=== PATIENT | female | born 1985 | race Hispanic/Latino ===

== ENCOUNTER 2020-10-15 17:30 | Emergency (ER) | payer BC ==
[2020-10-15 19:33] LABS: Basophils % 0.4 % (0-1.3)
[2020-10-15 19:43] LABS: Absolute Lymphocytes (CBC) 2.5 K/uL (0.7-4.9); Lymphocytes % 17.9 % (15.3-44.8); MPV 8.9 fL (7.6-11.3); RBC Red Blood Cell Count 5.06 M/uL (3.86-4.86)
[2020-10-15 19:50] LABS: Potassium 3.7 mmol/L (3.5-5.1)
[2020-10-15] MEDS ORDERED: METHYLPREDNISOLONE 125 MG INJ ONE (20:11)
[2020-10-15 20:22] LABS: Urine Specific Gravity/Preg 1.025 (1.005-1.030)
[2020-10-15 20:25] LABS: Blood Morphology Comment NOT SEEN (NOT SEEN); Platelet Estimate ADEQ; White Blood Cell Scan OK (OK)
--- NOTE | 2020-10-15 21:01 | RAD REPORT ---
EXAM DESCRIPTION: CT - Head Brain Wo Cont - 10/15/2020 8:22 pm CLINICAL HISTORY: PAIN, periorbital pain COMPARISON: No comparisons TECHNIQUE: Axial 5 mm thick images of the head were obtained without IV contrast. All CT scans are performed using dose optimization technique as appropriate and may include automated exposure control or mA/KV adjustment according to patient size. FINDINGS: No intracranial hemorrhage, mass, edema or shift of mid-line structures. No acute infarcti on changes seen. No abnormal extra-axial fluid collections. Ventricles are normal. Mastoid air cells are clear. Mucosal thickening seen in each maxillary sinus, worse on the right with an air-fluid level on the right. Ethmoid air cell mucosal thickening present. He was sphenoid mucosa l thickening is present. Frontal sinuses are clear. No globe abnormality. Optic nerves and extraocular muscles are normal in appearance. No air or foreig n body. Lacrimal glands are symmetric and more prominent than typically seen. Soft tissues anterior t o the globes do not appear grossly abnormal. No acute bony findings. IMPRESSION: No intracranial abnormality seen. Symmetric, enlarged lacrimal glands with no globe or orbital content otherwise noted. Findings are fu rther detailed follow postcontrast exam. Maxillary and ethmoid sinusitis
--- NOTE | 2020-10-15 21:07 | RAD REPORT ---
EXAM DESCRIPTION: CT - Head Brain W Cont - 10/15/2020 8:22 pm CLINICAL HISTORY: VISUAL DISTURBANCES, orbital cellulitis COMPARISON: Head Brain Wo Cont dated 10/15/2020 TECHNIQUE: Axial 5 mm thick images of the head were obtained following nonionic IV contrast. All CT scans are performed using dose optimization technique as appropriate and may include automated exposure control or mA/KV adjustment according to patient size. FINDINGS: No intracranial hemorrhage, mass, edema or shift of mid-line structures. No acute infarcti on changes seen. No abnormal extra-axial fluid collections. Ventricles are normal. Mastoid air cells are clear. Bilateral maxillary sinus mucosal thickening present. Air-fluid level no el on the right. Moderate severity ethmoid mucosal thickening seen. No frontal sinusitis findings. N artem septum is deviated to the right. No acute bony findings. No abnormality of either globe identifiable. The optic nerves and extraocular muscles are normal. No abnormality of the orbital fat. Lacrimal glands are enlarged over what is typically seen. The enlarge ment is symmetric. There is no calcification component. Post-contrast imaging shows prominent enhance ment of the lacrimal tissues. IMPRESSION: Symmetrically enlarged and enhancing lacrimal glands. No other globe or orbital content abnormality. Soft tissues anterior to the globes do not appear abnormal on CT imaging. CT findings are nonspecific. Dacryoadenitis is favored over orbital cellulitis. Lacrimal gland enlarg ement can be seen with numerous infectious/inflammatory etiologies and autoimmune disorders.
[2020-10-15 21:08] LABS: Urine Bacteria LOADED /HPF (<20); Urine Urothelial Cells <5 /HPF (NONE SEEN)
--- NOTE | 2020-10-15 21:11 | EDPHYS ---
Physician Documentation [facility] Name: Rasheeda Villa Age: 35 yrs Sex: Female : 1985 Arrival Date: 10/15/2020 Time: 17:31 Bed 5 Private MD: ED Physician Jai Finnegan HPI: 10/15 20:55 This 35 yrs old Female presents to ER via Ambulatory with complaints of jr8 orbital swelling. 20:55 Aggravated by opening eye, pressure, Alleviated by nothing. Associated signs and jr8 symptoms: Pertinent positives: None. Severity of symptoms: At their worst the symptoms were moderate in the emergency department the symptoms are unchanged. The patient has not experienced similar symptoms in the past. The patient has been recently seen by a physician:. Patient stated that she had started using a cream for around her eyes this past weekend. Started to have swelling to outside of eyes but also felt pain and had swelling and redness to lateral eyes. Had video consult on Tuesday with eye doctor and prescribed her drops. Was not getting better. Saw Dr. Montes today and told her to come to ED for CT to r/o orbital cellulitis . 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 ROS: 20:55 ENT: Negative for injury, pain, and discharge, Neck: Negative for injury, pain, and jr8 swelling, Cardiovascular: Negative for chest pain, palpitations, and edema, Respiratory: Negative for shortness of breath, cough, wheezing, and pleuritic chest pain, Abdomen/GI: Negative for abdominal pain, nausea, vomiting, diarrhea, and constipation, Back: Negative for injury and pain, MS/Extremity: Negative for injury and deformity, Skin: Negative for injury, rash, and discoloration, Neuro: Negative for headache, weakness, numbness, tingling, and seizure. 20:55 Eyes: Positive for pain, redness, swelling, of the right eye and left eye. Exam: 20:55 Visual Acuity: Visual acuity is within normal limits. jr8 20:55 Head/Face: Normocephalic, atraumatic. ENT: Nares patent. No nasal discharge, no septal abnormalities noted. Tympanic membranes are normal and external auditory canals are clear. Oropharynx with no redness, swelling, or masses, exudates, or evidence of obstruction, uvula midline. Mucous membranes moist. Neck: Trachea midline, no thyromegaly or masses palpated, and no cervical lymphadenopathy. Supple, full range of motion without nuchal rigidity, or vertebral point tenderness. No Meningismus. Cardiovascular: Regular rate and rhythm with a normal S1 and S2. No gallops, murmurs, or rubs. Normal PMI, no JVD. No pulse deficits. Respiratory: Lungs have equal breath sounds bilaterally, clear to auscultation and percussion. No rales, rhonchi or wheezes noted. No increased work of breathing, no retractions or nasal flaring. Neuro: Awake and alert, GCS 15, oriented to person, place, time, and situation. Cranial nerves II-XII grossly intact. Motor strength 5/5 in all extremities. Sensory grossly intact. Cerebellar exam normal. Normal gait. 20:55 Eyes: Periorbital structures: swelling, that is mild, bilaterally, Pupils: equal, round, and reactive to light and accomodation, Extraocular movements: intact throughout, Conjunctiva: chemosis, that is mild, in right eye, in left eye, at 3 o'clock, injected, bilaterally, lateral aspects, Corneas: are normal, Sclera: no appreciated abnormality, Anterior chamber: normal, Lids and lashes: appear normal. Vital Signs: 17:39 BP 110 / 66; Pulse 69; Resp 18 S; Temp 97.9(TE); Pulse Ox 100% on R/A; Weight 60.78 kg ca1 (R); Height 5 ft. 4 in. (162.56 cm) (R); Pain 4/10; 19:51 BP 104 / 66; Pulse 66; Resp 16; Pulse Ox 98% ; sf 21:12 BP 108 / 57; Pulse 70; Resp 16; Pulse Ox 100% ; sf 17:39 Body Mass Index 23.00 (60.78 kg, 162.56 cm) ca1 Visual Acuity: 20:00 Left Eye Visual acuity 20/40, Pupil size 4 mm, Normal, React To Light, Reactive To sf Accomodation; Right Eye Visual acuity 20/25, Pupil size 4 mm, Normal, React To Light, Reactive To Accomodation; Both Eyes Visual acuity 20/25; With Lenses; MDM: 18:52 Patient medically screened. [facility] 21:08 Data reviewed: vital signs, nurses notes, lab test result(s), radiologic studies, CT jr8 scan. Data interpreted: Pulse oximetry: on room air is 98 %. Interpretation: normal. Counseling: I had a detailed discussion with the patient and/or guardian regarding: the historical points, exam findings, and any diagnostic results supporting the discharge/admit diagnosis, lab results, radiology results, the need for outpatient follow up, an opthalmologist, to return to the emergency department if symptoms worsen or persist or if there are any questions or concerns that arise at home. ED course: No orbital cellulitis. Most likely allergic reaction to patients topical cream . 10/15 18:58 Order name: CBC with Diff; Complete Time: 20:27 [facility] 10/15 18:58 Order name: Basic Metabolic Panel; Complete Time: 20:06 [facility] 10/15 19:53 Order name: Urine Microscopic Only; Complete Time: 21:12 [facility] 10/15 19:55 Order name: Urine Dipstick--Ancillary (enter results); Complete Time: 20:27 [facility] 10/15 19:55 Order name: Urine --Ancillary (enter results); Complete Time: 20:27 [facility] 10/15 20:25 Order name: CBC Smear Scan; Complete Time: 20:27 [facility] 10/15 18:58 Order name: IV; Complete Time: 19:45 [facility] 10/15 18:58 Order name: Urine Test (obtain specimen); Complete Time: 19:46 [facility] 10/15 18:58 Order name: Urine Dipstick-Ancillary (obtain specimen); Complete Time: 19:45 [facility] 10/15 19:20 Order name: CT Head Brain w Cont; Complete Time: 21:12 [facility] 10/15 20:12 Order name: CT Head Brain wo Cont; Complete Time: 21:02 [facility] 10/15 21:09 Order name: Urine Culture [facility] 10/15 19:20 Order name: Visual Acuity; Complete Time: 20:00 [facility] Administered Medications: 19:55 Drug: SOLU-Medrol 125 mg Route: IVP; Site: right forearm; sf 21:08 Follow up: Response: No adverse reaction sf Disposition: 10/16 07:17 Co-signature as Attending Physician, Jai Finnegan MD I agree with the assessment and alfredo plan of care. Disposition: 10/15/20 21:10 Discharged to Home. Impression: Chemosis, Allergic contact dermatitis due to other agents, Edema of bilateral orbit, Urinary tract infection, site not specified. - Condition is Stable. - Prescriptions for Prednisone 20 mg Oral Tablet - take 2 tablet by ORAL route once daily for 5 days; 10 tablet. Macrobid 100 mg Oral Capsule - take 1 capsule by ORAL route every 12 hours for 7 days; 14 capsule. - Medication Reconciliation Form, Thank You Letter, Antibiotic Education, Prescription Opioid Use form. - Work release form (10/16/20 07:44). em1 - Follow up: Nima Montes MD; When: 5 - 6 days; Reason: Recheck today's complaints, Continuance of care, Re-evaluation by your physician. - Problem is new. - Symptoms have improved. Signatures: Dispatcher [employer] Jai Whitt MD MD cha Roszak, Josh, PA PA jr8 Alanna Oscar RN RN ca1 Tejas Willingham RN RN sf Martinez, Eric em1 Corrections: (The following items were deleted from the chart) 10/15 20:43 20:31 UA MICROSCOPIC+U.LAB.BRZ ordered. [facility] 21:11 21:10 10/15/2020 21:10 Discharged to Home. Impression: Chemosis; Orbital swelling; jr8 Allergic contact dermatitis due to other agents. Condition is Stable. Forms are Medication Reconciliation Form, Thank You Letter, Antibiotic Education, Prescription Opioid Use. Follow up: Nima Montes; When: 5 - 6 days; Reason: Recheck today's complaints, Continuance of care, Re-evaluation by your physician. Problem is new. Symptoms have improved. jr8 21:13 21:11 10/15/2020 21:10 Discharged to Home. Impression: Chemosis; Allergic contact jr8 dermatitis due to other agents; Edema of bilateral orbit. Condition is Stable. Forms are Medication Reconciliation Form, Thank You Letter, Antibiotic Education, Prescription Opioid Use. Follow up: Nima Montes; When: 5 - 6 days; Reason: Recheck today's complaints, Continuance of care, Re-evaluation by your physician. Problem is new. Symptoms have improved. jr8 21:22 21:13 10/15/2020 21:10 Discharged to Home. Impression: Chemosis; Allergic contact sf dermatitis due to other agents; Edema of bilateral orbit; Urinary tract infection, site not specified. Condition is Stable. Prescriptions for Prednisone 20 mg Oral Tablet - take 2 tablet by ORAL route once daily for 5 days; 10 tablet, Macrobid 100 mg Oral Capsule - take 1 capsule by ORAL route every 12 hours for 7 days; 14 capsule. and Forms are Medication Reconciliation Form, Thank You Letter, Antibiotic Education, Prescription Opioid Use. Follow up: Nima Montes; When: 5 - 6 days; Reason: Recheck today's complaints, Continuance of care, Re-evaluation by your physician. Problem is new. Symptoms have improved. jr8
--- NOTE | 2020-10-15 21:11 | ER ---
Nurse's Notes [facility] Name: Rasheeda Villa Age: 35 yrs Sex: Female : 1985 Arrival Date: 10/15/2020 Time: 17:31 Bed 5 Private MD: Diagnosis: Chemosis;Allergic contact dermatitis due to other agents;Edema of bilateral orbit;Urinary tract infection, site not specified Presentation: 10/15 17:39 Chief complaint: Patient states: Dr. Montes's notes: 35yo/F. Several days orbital ca1 swelling suspected orbital cellulitis. Needs stat CT scan orbits and sinus with and without contrast. CBC. call with results please. Pt: swelling started Tuesday. Reports pain on both eyes and photosensitivity. Coronavirus screen: Client denies travel out of the [place] in the last 14 days. At this time, the client does not indicate any symptoms associated with coronavirus-19. Ebola Screen: Patient negative for fever greater than or equal to 101.5 degrees Fahrenheit, and additional compatible Ebola Virus Disease symptoms Patient denies exposure to infectious person. Patient denies travel to an Ebola-affected area in the 21 days before illness onset. No symptoms or risks identified at this time. Initial Sepsis Screen: Does the patient meet any 2 criteria? No. Patient's initial sepsis screen is negative. Does the patient have a suspected source of infection? No. Patient's initial sepsis screen is negative. Risk Assessment: Do you want to hurt yourself or someone else? Patient reports no desire to harm self or others. Onset of symptoms. 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 Screenin:30 Abuse screen: Denies threats or abuse. Denies injuries from another. Nutritional sf screening: No deficits noted. Tuberculosis screening: No symptoms or risk factors identified. Never had TB. Possible symptoms: None Risk factors: None. Fall Risk None identified. No fall in past 12 months (0 pts). No secondary diagnosis (0 pts). IV access (20 points). Ambulatory Aid- None/Bed Rest/Nurse Assist (0 pts). Gait- Normal/Bed Rest/Wheelchair (0 pts) Mental Status- Oriented to own ability (0 pts). Total Reich Fall Scale indicates No Risk (0-24 pts). Assessment: 19:30 General: Appears in no apparent distress. comfortable. Pain: Complains of pain in right sf eye and left eye. Neuro: No deficits noted. Level of Consciousness is awake, alert, Oriented to person, place, time, situation. Cardiovascular: No deficits noted. Patient's skin is warm and dry. Respiratory: No deficits noted. Airway is patent Respiratory effort is even, unlabored, Respiratory pattern is regular, symmetrical. GI: No signs and/or symptoms were reported involving the gastrointestinal system. : No signs and/or symptoms were reported regarding the genitourinary system. EENT: Eyes are tearing on inner aspect of conjuctiva of right eye and inner aspect of conjunctiva of left eye Sclera/Cornea are reddened in outer aspect of conjuctiva of right eye and inner aspect of conjuctiva of right eye bilateral orbital edema. Reports photophobia Denies blurred vision. 19:36 Reassessment: Bryson [id number]. 21:12 Reassessment: Patient appears in no apparent distress at this time. Patient and/or sf family updated on plan of care and expected duration. Pain level reassessed. Patient is alert, oriented x 3, equal unlabored respirations, skin warm/dry/pink. Patient states feeling better. Patient states symptoms have improved. Vital Signs: 17:39 BP 110 / 66; Pulse 69; Resp 18 S; Temp 97.9(TE); Pulse Ox 100% on R/A; Weight 60.78 kg ca1 (R); Height 5 ft. 4 in. (162.56 cm) (R); Pain 4/10; 19:51 BP 104 / 66; Pulse 66; Resp 16; Pulse Ox 98% ; sf 21:12 BP 108 / 57; Pulse 70; Resp 16; Pulse Ox 100% ; sf 17:39 Body Mass Index 23.00 (60.78 kg, 162.56 cm) ca1 Visual Acuity: 20:00 Left Eye Visual acuity 20/40, Pupil size 4 mm, Normal, React To Light, Reactive To sf Accomodation; Right Eye Visual acuity 20/25, Pupil size 4 mm, Normal, React To Light, Reactive To Accomodation; Both Eyes Visual acuity 20/25; With Lenses; ED Course: 17:31 Patient arrived in ED. am2 17:49 Triage completed. ca1 17:49 Arm band placed on right wrist. ca1 18:52 [facility] jr8 18:52 Jai Finnegan MD is Attending Physician. jr8 19:12 Tejas Willinhgam RN is Primary Nurse. sf 19:30 Patient has correct armband on for positive identification. Bed in low position. Call sf light in reach. Side rails up X 1. Pulse ox on. NIBP on. Door closed. Noise minimized. Visitors limited. Lights dimmed. Verbal reassurance given. 19:45 Urine collected: clean catch specimen, clear. sf 20:16 CT Head Brain wo Cont Sent. sf 20:16 CT Head Brain w Cont Sent. sf 20:21 CT Head Brain w Cont In Process Unspecified. EDMS 20:22 CT Head Brain wo Cont In Process Unspecified. EDMS 21:09 Nima Montes MD is Referral Physician. jr8 21:21 No provider procedures requiring assistance completed. IV discontinued, intact, sf bleeding controlled, No redness/swelling at site. Pressure dressing applied. Administered Medications: 19:55 Drug: SOLU-Medrol 125 mg Route: IVP; Site: right forearm; sf 21:08 Follow up: Response: No adverse reaction Outcome: 21:10 Discharge ordered by . jr8 21:22 Discharged to home ambulatory. sf 21:22 Condition: stable 21:22 Discharge instructions given to patient, Instructed on discharge instructions, follow up and referral plans. medication usage, Demonstrated understanding of instructions, follow-up care, medications, Prescriptions given X 2. 21:22 Patient left the ED. sf Addendum: 10/19/2020 07:09 Addendum: Culture Results: Positive urine culture. No further action required. Bacteria e b sensitive to prescribed antibiotic. Signatures: Dispatcher [employer] EDGA Ajay Villafana PA PA jr8 Kaylah Martin am2 Soheila Adler RN RN ea Botello, Elizabeth eb Acob, Alanna, RN RN ca1 Tejas Willingham, RN RN sf
[2020-10-16 04:46] VITALS: TEMP 97.9
[2020-10-16 04:55] VITALS: BP 108/57; O2SAT 100
[2020-10-22 15:41] LABS: Urine Blood 2+ (Negative); Urine Glucose Negative (Negative); Urine Protein Negative (Negative); Urine Specific Gravity 1.025 (1.005-1.030)
== END 2020-10-15 21:22 | disposition home or self-care (01) ==
LOC: ER 17:30
DX: L23.89 Allergic contact dermatitis due to other agents (principal); H11.423 Conjunctival edema, bilateral; N39.0 Urinary tract infection, site not specified
CPT/HCPCS: 87088; 85025; 87086; 80048; 36415; 81025; 70460; 70450; Q9967; J2930; 81003; 81015; 87077; 87186; 96374; 99284